=== PATIENT | male | born 1945 | race Caucasian/White ===

== ENCOUNTER 2024-04-03 18:11 | Emergency (ER) | payer MEDICARE, OTHER, SELFPAY ==
[2024-04-03 19:04] VITALS: BP 153/87
--- NOTE | 2024-04-03 22:07 | ED.GENMED ---
History of Present Illness
General
Chief Complaint: Bowel Problem
Source: patient
Exam Limitations: none
Time Seen by Provider: 04/03/24 21:08
History of Present Illness
History of Present Illness:
This is a 78 year old male that comes in with c/o constipation. States that the had a Hemorrhoidectomy on Wednesday. Today patient saw the surgeon and he states that they gave him a bottle of Magnesium Citrate and Senecote. States that in about a 1/2
hour he vomited this back up. States that he tried Miralax but this gave him indigestions. Denies any fever, chills, chest pain, SOB, abd pain, nausea, vomiting, diarrhea, headache, dizziness, urinary burning.
Past History
Past History
ED Past Medical History: Asthma, Cancer (Skin CA), GERD and Other (Dizziness, PNA, Sleep apnea, Diverticulitis, Hiatal hernia, IBS, Ulcers, )
ED Past Surgical History: Orthopedic (Spinal fusion, Bilateral carpal tunnel, Left thumb surgery) and Other ( Hemorrhoidectomy, Cataracts, Hernia repair)
Social History
Tobacco: Former smoker
Alcohol: Occasional
Drug: None
Personal:
Living: alone
Family History
Family History: Other (Noncontributory)
Review of Systems
Review of Systems
All Other Systems: ROS reviewed and negative except as documented in HPI and ROS
Constitutional: Reports no symptoms; Denies fever or chills
EENT: Reports no symptoms
Respiratory: Reports no symptoms; Denies cough or trouble breathing
Cardiac: Reports no symptoms; Denies chest pain
ABD/GI: Reports vomiting (Once) and constipated; Denies abdominal pain, nausea or diarrhea
: Reports no symptoms; Denies dysuria, frequency or urgency
Musculoskeletal: Reports no symptoms
Skin: Reports no symptoms
Neurological: Reports no symptoms; Denies dizzy or headache
Psychiatric: Reports no symptoms
Phy Exam
General Physical Exam
General Presentation: well appearing and no apparent distress
General age: appears stated age
General Skin: warm and dry
General Habitus: elderly
General Mental: alert
General Hydration: appears well hydrated
ENT Exam
ENT Exam: TM's normal, pharynx normal and neck supple
Eye Exam
Eye Exam: EOMI
Cardiovascular Exam
Cardiovascular Exam: regular rate/rhythm, no edema and normal peripheral pulses
Pulmonary Exam
Pulmonary Exam: lungs clear, no respiratory distress, no rales, chest non tender, no crackles, no rhonchi, no wheezing and no cough
Gastrointestinal Exam
Gastrointestinal Exam: normal bowel sounds, non tender, soft, no organomegaly, no pulsatile mass and non distended
Musculoskeletal Exam
Musculoskeletal Exam: full ROM and no edema
Skin Exam
Skin Exam: normal color, warm/dry, no rash and no petechia
Psychiatric Exam
Psychiatric Exam: normal mood/affect
Course
Vital Signs
Initial and Last Documented VS:
Initial Vital Signs
Temp Pulse Resp BP Pulse Ox
98.9 F 89 18 153/87 96
04/03/24 19:04 04/03/24 19:04 04/03/24 19:04 04/03/24 19:04 04/03/24 19:04
Last Documented Vital Signs
Temp Pulse Resp BP Pulse Ox
98.9 F 89 18 153/87 96
04/03/24 19:04 04/03/24 19:04 04/03/24 19:04 04/03/24 19:04 04/03/24 19:04
MDM/Problems Addressed
Differential Diagnosis Includes:
Constipation.
MDM/Problems Addressed:
This is a 78 year old male that comes in with c/o constipation. States that he had a hemorrhoidectomy on Wednesday and he has not been able to have a BM. States that he saw the surgeon today and that he said everything looks good. He was given
Magnesium Citrate and Senecote. States that he drank 1/2 a bottle and in a half our he vomited. States that he just feel bloated.
Explained to patient that with his clips and just having surgery he would not be given an enema. Will give patient Zofran and have him drink the other half of bottle of Magnesium citrate. Offered patient an Obstruction series but patient refused.
Explained to patient that he can use Prune juice mixed with apple juice in equal amounts and heat and drink daily. Patient to follow up with the surgeon. Return with any concerns.
Chronic conditions affecting care:
NA
Acute Exacerbation and/or Progression of Chronic Illness:
NA
*Pulse Oximetry
Patient hypoxic: no
*EKG
Interpreted by ED Provider?: NA
Rate: EKG- N/A
*Refining Machine Operator Interpretation
Rate: Refining Machine Operator- N/A
*Critical Care Note
Total Time (30-74mins, 75-104mins- exclusive of procedures): Not Applicable
ED Attending Note
-
Portions of this chart may have been created with voice recognition software.� Occasional wrong word or��sound alike� substitutions may have occurred due to the inherent limitations of voice recognition software.
Discharge Plan
Departure
Patient Disposition: Home (Routine Discharge)
Date of Disposition: 04/03/24
Time of Disposition: 22:18
Patient with high blood pressure during this ER visit?: Yes
Condition: Good
Covid-19: Not Applicable
Discharge Problem:
Constipation
Instructions: Constipation, Adult (DC), BLOOD PRESSURE
Prescriptions:
New
ondansetron 4 mg tablet,disintegrating
4 mg PO Q8H PRN (Reason: nausea and vomiting) Qty: 4 0RF
No Action
vitamin A 2,400 mcg Capsule
2,400 mcg PO DAILY
therapeutic multivitamin Tablet
1 tab PO DAILY
acetaminophen [Tylenol Arthritis Pain] 650 mg Tablet Extended Release
1,300 mg PO HS
temazepam 15 mg capsule
15 mg PO HSPRN PRN (Reason: sleep)
kdcm-[id number]-mjmatgqf-D3-C-Mn 500-400-667 mg-mg-unit Capsule
1 cap PO DAILY
Prevagen
1 cap PO DAILY
hydrocortisone acetate 25 mg Suppository
25 mg ID BID 7 Days Qty: 24 0RF
acetaminophen 325 mg Tablet
650 mg PO Q6HPRN PRN (Reason: mild pain/ fever>100.5F) 30 Days Qty: 180 0RF
polyethylene glycol 3350 [Miralax] 17 gram/dose powder
4 g PO DAILY Qty: 510 0RF
lansoprazole 15 mg Capsule,Delayed Release(Dr/Ec)
15 mg PO DAILY 30 Days Qty: 30 0RF
Referrals:
Paul Smith MD [Family Provider] - Follow up in 2-3 days
Activity Restrictions/Additional Instructions:
As discussed, a prescription for Zofran has been sent to your Pharmacy. You have been Zofran here. You may drink the other have of the Magnesium Citrate to help get things moving. You may also try Prune juice mixed with apple juice in equal amounts
and heat and drink daily. Follow up with the Surgeon if you do not move your bowels. IF YOU HAVE ANY OTHER CONCERNS PLEASE RETURN TO THE EMERGENCY ROOM.
Interventions
Interventions:
*Risk Screen - Suicide Last Done: 04/03/24 19:04
*General Assessment Last Done: 04/03/24 19:04
*Neglect/Abuse Screening Last Done: 04/03/24 19:04
Discharge Date and Time
Print Language: FRISIAN
[2024-04-03] MEDS: ZOFRAN ODT (ORALLY DISINTEGRATING) 8 MG PO (22:23)
[2024-04-03 22:26] VITALS: BP 156/87
== END 2024-04-03 22:32 | disposition home or self-care (01) ==
LOC: EMR 18:11
PROVIDERS: EMERGENCY PHYSICIAN Student in an Organized Health Care Education/Training Program; FAMILY PHYSICIAN Internal Medicine
DX: K59.00 Constipation, unspecified (principal); R11.10 Vomiting, unspecified; R03.0 Elevated blood-pressure reading, without diagnosis of hypertension; K21.9 Gastro-esophageal reflux disease without esophagitis; J45.909 Unspecified asthma, uncomplicated; G47.30 Sleep apnea, unspecified; K58.9 Irritable bowel syndrome, unspecified; K44.9 Diaphragmatic hernia without obstruction or gangrene; K57.92 Diverticulitis of intestine, part unspecified, without perforation or abscess without bleeding; Z98.890 Other specified postprocedural states; Z98.1 Arthrodesis status; Z87.891 Personal history of nicotine dependence; Z85.828 Personal history of other malignant neoplasm of skin
CPT/HCPCS: 99283

== ENCOUNTER 2024-07-10 11:56 | Emergency (ER) | payer MEDICARE, OTHER, SELFPAY ==
[2024-07-10 12:03] VITALS: BP 148/83
--- NOTE | 2024-07-10 13:29 | EDRN ---
Pt states he has varicose veins on R calf. He states he walks a lot and is not sure if that is irritating area. Here to r/o DVT.
--- NOTE | 2024-07-10 13:30 | ED.GENMED ---
History of Present Illness
General
Chief Complaint: DVT/Possible Blood Clot
Source: patient
Exam Limitations: none
Time Seen by Provider: 07/10/24 13:10
History of Present Illness
History of Present Illness:
this is [id number] male who presents with pain in the right calf. Patient states it started a few days ago (about 5 days ago). He was seen at an urgent care today because it worried him and they advised him to come for an ultrasound. The
patient states that he has a history of varicose veins. He has had laser therapy. He states he used to wear compression stockings but he reports it did not seem like they helped. Patient feels like the pain is a little better but it is focal to
the medial aspect of the right calf. No numbness or tingling. No fevers. No redness. The pt reports that he walks daily
Past History
Past History
ED Past Medical History: Asthma, Cancer (Skin CA), GERD and Other (Dizziness, PNA, Sleep apnea, Diverticulitis, Hiatal hernia, IBS, Ulcers, Varicose veins)
ED Past Surgical History: Orthopedic (Spinal fusion, Bilateral carpal tunnel, Left thumb surgery) and Other ( Hemorrhoidectomy, Cataracts, Hernia repair)
Social History
Tobacco: Former smoker
Alcohol: Occasional
Drug: None
Personal:
Living: alone
Family History
Family History: Other (Noncontributory)
Phy Exam
Physical Exam
Physical Exam:
CONSTITUTIONAL Vital signs reviewed, Patient alert and oriented to person, place and time. Well-appearing
HEAD atraumatic, normocephalic.
EYES eyelids normal to inspection, Extraocular muscles intact, Conjunctiva normal, Sclera normal.
NECK normal range of motion, Trachea midline, no jugular venous distention.
RESP no respiratory distress
BACK No obvious deformities
UPPER EXTREMITY Gross Range of motion normal, gross motor strength normal
LOWER EXTREMITY Gross range of motion normal, Gross motor strength normal. significant burder of varicose veins in the RLE. noted small indurate area on medial aspect of R calf. no redness. suspect superficial clot
NEURO Speech normal, No focal motor deficits include, Neha coma scale 15, Memory normal, Cranial Nerves intact to screening exam.
SKIN Skin warm, dry, and normal in color.
PSYCHIATRIC Patient oriented to person place and time, Normal affect.
Course
Orders/Labs/Results
Orders:
Orders
07/10/24 12:04
US Periph Venous LOWER Ext RT Urgent
Comment:
Reason For Exam: right calf swelling with pain
Vital Signs
Initial and Last Documented VS:
Initial Vital Signs
Temp Pulse Resp BP Pulse Ox
98.6 F 101 16 148/83 98
07/10/24 12:03 07/10/24 12:03 07/10/24 12:03 07/10/24 12:03 07/10/24 12:03
Last Documented Vital Signs
Temp Pulse Resp BP Pulse Ox
98.6 F 101 16 148/83 98
07/10/24 12:03 07/10/24 12:03 07/10/24 12:03 07/10/24 12:03 07/10/24 13:25
MDM/Problems Addressed
Differential Diagnosis Includes:
DVT. muscular injury. thrombophlebitis.
MDM/Problems Addressed:
Superficial thrombosis, varicose veins
*Radiology
Radiology exam reviewed: radiology read reviewed
*Pulse Oximetry
Patient hypoxic: no
*Critical Care Note
Total Time (30-74mins, 75-104mins- exclusive of procedures): Not Applicable
Data Reviewed
Source: patient
Prescriptions/Medications Considered But Not Given:
Considered anticoagulation but no DVT
Patient Management
Escalation/DeEscalation of care consider admission/obs:
Recommend warm compresses. Recommended compression stockings. Okay for discharge
ED Attending Note
-
Portions of this chart may have been created with voice recognition software.� Occasional wrong word or��sound alike� substitutions may have occurred due to the inherent limitations of voice recognition software.
Discharge Plan
Departure
Patient Disposition: Home (Routine Discharge)
Date of Disposition: 07/10/24
Time of Disposition: 14:11
Patient with high blood pressure during this ER visit?: Yes
Discharge Problem:
Superficial thrombophlebitis
Instructions: Phlebitis (DC), BLOOD PRESSURE
Prescriptions:
No Action
vitamin A 2,400 mcg Capsule
2,400 mcg PO DAILY
therapeutic multivitamin Tablet
1 tab PO DAILY
acetaminophen [Tylenol Arthritis Pain] 650 mg Tablet Extended Release
1,300 mg PO HS
temazepam 15 mg capsule
15 mg PO HSPRN PRN (Reason: sleep)
vsig-hlyhyu-zlarjlef-D3-C-Mn 500-400-667 mg-mg-unit Capsule
1 cap PO DAILY
Prevagen
1 cap PO DAILY
hydrocortisone acetate 25 mg Suppository
25 mg CO BID 7 Days Qty: 24 0RF
acetaminophen 325 mg Tablet
650 mg PO Q6HPRN PRN (Reason: mild pain/ fever>100.5F) 30 Days Qty: 180 0RF
polyethylene glycol 3350 [Miralax] 17 gram/dose powder
4 g PO DAILY Qty: 510 0RF
lansoprazole 15 mg Capsule,Delayed Release(Dr/Ec)
15 mg PO DAILY 30 Days Qty: 30 0RF
ondansetron 4 mg tablet,disintegrating
4 mg PO Q8H PRN (Reason: nausea and vomiting) Qty: 4 0RF
Activity Restrictions/Additional Instructions:
Apply warm compresses as discussed. Consider using compression stockings as discussed. Return immediately for fevers, redness, worsening pain, increased swelling or any other concerns. Please see your doctor in the next 3 weeks if symptoms persist
Interventions
Interventions:
*Risk Screen - Suicide Last Done: 07/10/24 12:03
*General Assessment Last Done: 07/10/24 13:25
*Neglect/Abuse Screening Last Done: 07/10/24 12:03
*ED COVID-19 Vaccine History Last Done: 07/10/24 13:25
ED- Cardiac Assessment Last Done: 07/10/24 13:25
ED- Pulmonary Assessment Last Done: 07/10/24 13:25
ED-Peripheral Vascular Assessment Last Done: 07/10/24 13:25
ED-Skin Assessment Last Done: 07/10/24 13:25
Discharge Date and Time
Print Language: MEXICAN
[2024-07-10 14:45] VITALS: BP 140/80
== END 2024-07-10 14:47 | disposition home or self-care (01) ==
LOC: EMR 11:56
PROVIDERS: EMERGENCY PHYSICIAN Emergency Medicine; FAMILY PHYSICIAN Internal Medicine
DX: M79.661 Pain in right lower leg (principal); I80.01 Phlebitis and thrombophlebitis of superficial vessels of right lower extremity; R03.0 Elevated blood-pressure reading, without diagnosis of hypertension; Z87.891 Personal history of nicotine dependence
CPT/HCPCS: 99284; 93971

== ENCOUNTER → 2025-03-06 16:00 | Outpatient (REF) | payer MEDICARE, OTHER, SELFPAY | LOC: DHSLP 16:00 | PROVIDERS: ATTENDING PHYSICIAN Internal Medicine Critical Care Medicine; FAMILY PHYSICIAN Internal Medicine | DX: G47.33 Obstructive sleep apnea (adult) (pediatric) (principal) | CPT/HCPCS: 95800 ==